=== PATIENT | female | born 1975 | race Caucasian/White ===

== ENCOUNTER → 2016-11-27 17:07 | Outpatient (CLI) | payer OTHER | END | disposition home or self-care (01) | LOC: D.MAMMO 11:45 | DX: Z12.31 Encounter for screening mammogram for malignant neoplasm of breast (principal) ==

== ENCOUNTER → 2016-12-31 16:59 | Outpatient (CLI) | payer OTHER | END | disposition home or self-care (01) | LOC: D.MAMMO 08:30 | DX: N63 Unspecified lump in breast (principal) ==

== ENCOUNTER → 2017-08-13 17:07 | Outpatient (CLI) | payer OTHER | END | disposition home or self-care (01) | LOC: D.MAMMO 09:00 | DX: N60.01 Solitary cyst of right breast (principal) ==

== ENCOUNTER 2018-12-30 08:38 | Day surgery (SDC) | payer OTHER ==
[~2018-12-30] VITALS: Ht 149.9 cm; Wt 70.3 kg
[~2018-12-30 08:38] MED LIST: MIRALAX17 GM PO
[2018-12-30 09:14] VITALS: BP 131/83; BP 198/84; Ht 149.9 cm; Wt 70.3 kg
[2018-12-30 10:26] LABS: HEMATOCRIT 33.3 % (36.0-48.0); HEMOGLOBIN 10.2 g/dL (12-16); MCH 23.1 pg (26.0-34.0); MCHC 30.6 g/dL (31.0-37.0); MCV 75.3 fL (80.0-100.0); MEAN PLATELET VOLUME 10.6 fL (7.4-10.4); RBC 4.42 10x6/uL (4.00-5.40); RDW 18.4 % (11.5-14.5); WBC 4.6 10x3/uL (4.8-10.8)
--- NOTE | 2018-12-30 16:00 | NUR ---
IV REMOVED AND PRESSURE APPLIED
--- NOTE | 2018-12-30 18:45 | OP ---
PATIENT NAME: HILLARY ARMENTA MEDICAL RECORD: [id number] :77 LOCATION:[facility] ADMISSION DATE: SURGEON: ZOIE GILBERT MD DATE OF OPERATION: 12/30/2018 PREOPERATIVE DIAGNOSES: 1. Intractably symptomatic external hemorrhoids. 2. Fourth-degree internal hemorrhoidal prolapse. 3. Bleeding internal hemorrhoids. POSTOPERATIVE DIAGNOSES: 1. Intractably symptomatic external hemorrhoids. 2. Fourth-degree internal hemorrhoidal prolapse. 3. Bleeding internal hemorrhoids. PROCEDURE: Procedure for prolapse and hemorrhoids. SURGEON: Zoie Gilbert MD PARTS COUNTER REPRESENTATIVE: None. BLOOD LOSS: Less than 25 cc. ANESTHESIA: General. COMPLICATIONS: None. The risks, possible complications, and alternatives to the procedure were explained to the patient. She elects to proceed. The discussion specifically included, but was not limited to, bleeding, requiring emergency reoperation; infection; recurrent hemorrhoidal symptoms. OPERATIVE COURSE: The patient was conveyed to the operating room electively on 12/30/2018. General anesthesia was induced by the anesthesia staff. The patient was placed in the lithotomy position. The buttocks were taped laterally. The anus and perianal area were sterilely prepped and draped. I dilated the anus laterally to 3 fingers. A PPH dilator retractor was placed. The retractor was sewn to the surrounding anoderm with 2-0 silks. A mucosal pursestring suture of 2-0 Prolene was applied 1 cm cephalad to the clear retractor. The PPH stapling device was then inserted with the anvil cephalad to the pursestring suture, which was then tightened and tied. The stapling device was engaged. It was held in place for 3 minutes and then fired. The stapling device was removed and there was an entire donut of mucosal tissue within the device. Bleeding along the anastomotic staple line was controlled with [id number] 3-0 Vicryls. I then removed the clear retractor. There were still some enlarged internal hemorrhoidal bundles. There were 3 of these and they were ligated with suture ligature of 3-0 Vicryls. Gelfoam was applied within the anus and the lower rectum. A combination of steroid preparation and Marcaine was used to infiltrate the perianal tissues. A topical anesthetic cream was applied to the external hemorrhoids. The patient was then extubated and conveyed to the postanesthesia care unit, where she was in stable condition. I will plan to see her in my office in 2-3 OPERATIVE REPORT [id number] KATHI,HILLARY drew. TRANSINT:[id number] Voice Confirmation ID: [id number] DOCUMENT ID: [id number] ZOIE GILBERT MD at 1845 CC: MAUREEN ANDRES MD [id number] DICTATION DATE: 12/30/18 1401 [facility] LICENSEE: 12/30/18 1504 [facility] 12/30/18 [facility] [address] [place] [address]
== END 2018-12-30 16:16 | disposition home or self-care (01) ==
LOC: D.OPS 08:38
PROVIDERS: Anesthesiology; ATTEND Surgery
DX: K64.4 Residual hemorrhoidal skin tags (principal); K64.3 Fourth degree hemorrhoids; Z01.812 Encounter for preprocedural laboratory examination

== ENCOUNTER 2020-04-13 14:30 | Outpatient (CLI) | payer OTHER ==
[2018-12-30 09:14] VITALS: BMI 31.3
== END 2020-04-13 23:59 | disposition home or self-care (01) ==
LOC: D.MAMMO 14:30
PROVIDERS: ATTEND Family Medicine
DX: Z12.31 Encounter for screening mammogram for malignant neoplasm of breast (principal)

== ENCOUNTER 2020-05-03 11:00 | Outpatient (CLI) | payer OTHER ==
[2018-12-30 09:14] VITALS: BMI 31.3
== END 2020-05-03 23:59 | disposition home or self-care (01) ==
LOC: D.MAMMO 11:00
PROVIDERS: ATTEND Family Medicine
DX: R92.8 Other abnormal and inconclusive findings on diagnostic imaging of breast (principal)